=== PATIENT | male | born 1960 | race Caucasian/White ===

== ENCOUNTER 2017-03-13 08:59 | Day surgery (SDC) | payer BC ==
[~2017-03-13] VITALS: Ht 175.3 cm; Wt 93.8 kg
[~2017-03-13 08:59] MED LIST: CELEXA20 M2 PO; FISH OIL PO; GLUCOSAMINE &1 EAC1 PO; MULTIVITAMINS1 EAC6 PO
[2017-03-13 10:43] LABS: ANION GAP 11 mmol/L (0-20); BLOOD UREA NITROGEN 14 mg/dl (6-24); CARBON DIOXIDE-VENOUS 28 mmol/L (22-32); CHLORIDE 108 mmol/l (96-110); CREATININE 1.05 mg/dl (0.60-1.30); GLUCOSE 102 mg/dL (70-110); SODIUM 143 mmol/L (135-145); eGFR VALUE FOR BLACK >90 mL/Min
[2017-03-13 10:49] LABS: POTASSIUM 4.2 mmol/L (3.7-5.1)
== END 2017-03-13 14:50 ==
LOC: SRG 08:59 → SHSA 08:59 → SRG 09:00 → SHSA 09:04 → ORE 11:05 → PACU 12:15 → SHSA 12:40 → SRG 14:50
PROVIDERS: Anesthesiology
PROC: 0TF3XZZ Fragmentation in Right Kidney Pelvis, External Approach (ICD-10-PCS; principal; 2017-03-13)
DX: N20.0 Calculus of kidney (principal); F32.9 Major depressive disorder, single episode, unspecified; M06.9 Rheumatoid arthritis, unspecified; Z98.890 Other specified postprocedural states; Z96.651 Presence of right artificial knee joint; Z79.899 Other long term (current) drug therapy; Z91.040 Latex allergy status; Z91.041 Radiographic dye allergy status
CPT/HCPCS: J1956